=== PATIENT | female | born 1990 | race Caucasian/White ===

== ENCOUNTER 2024-11-20 18:52 | Emergency (ER) | payer OTHER ==
[2024-11-20] MEDS ORDERED: ACETAMINOPHEN 500 MG TAB ONE (19:28)
[2024-11-20] MEDS ORDERED: ACETAMINOPHEN 325 MG TABLET ONE (19:37)
[2024-11-20] MEDS ORDERED: methocarbamoL 500 MG TAB ONE (19:37)
[2024-11-20 20:03] LABS: Specific Gravity 1.013 (1.005-1.030)
[2024-11-20 20:09] LABS: Specific Gravity 1.013 (1.005-1.030); Urine Bacteria <20 /HPF (<20); Urine Bilirubin NEGATIVE (Negative); Urine Blood Negative (Negative); Urine Clarity Extremely Turbid (Clear); Urine Color Light-Yellow (Yellow); Urine Crystals Unidentified Few /HPF (None Seen); Urine Culture Reflex Order NOT NEEDED; Urine Glucose NEGATIVE (Negative); Urine Ketones NEGATIVE (Negative); Urine Microscopic Reflex YN ORDER UMIC; Urine Nitrite NEGATIVE (Negative); Urine Protein NEGATIVE (Negative); Urine RBC <5 /HPF (None Seen); Urine Urobilinogen Normal (Normal); Urine WBC <5 /HPF (<5); Urine pH 6.5 (5.0-7.0)
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
[2024-11-20] MEDS ORDERED: METOCLOPRAMIDE 10 MG/2mL INJ ONE (20:49)
[2024-11-20] MEDS ORDERED: NA CHLORIDE 0.9% 50 ML ONE (20:49)
[2024-11-20] MEDS ORDERED: DIPHENHYDRAMINE 50 MG/ML VIAL ONE (20:49)
[2024-11-20] MEDS ORDERED: NA CHLORIDE 0.9% 1,000 ML ONE (20:49)
[2024-11-20] MEDS ORDERED: KETOROLAC 30 MG/ML INJ ONE (20:49)
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
[2024-11-20] MEDS ORDERED: LORazepam 2 MG/ML VIAL ONE (22:32)
[2024-11-20] MEDS ORDERED: FENTANYL CITR 100 MCG/2 ML ONE (22:45)
[2024-11-20 23:16] VITALS: BP 132/76; TEMP 97.2; O2SAT 100
== END 2024-11-20 22:54 | disposition short-term general hospital (02) ==
LOC: ER 18:52
DX: S12.691A Other nondisplaced fracture of seventh cervical vertebra, initial encounter for closed fracture (principal); S22.010A Wedge compression fracture of first thoracic vertebra, initial encounter for closed fracture; S22.020A Wedge compression fracture of second thoracic vertebra, initial encounter for closed fracture; V49.50XA Passenger injured in collision with unspecified motor vehicles in traffic accident, initial encounter
CPT/HCPCS: 96361; 81001; 81025; 70450; 72125; 72128; 96375; 96374; 99285; J2765; J1200; J3010; J7030